=== PATIENT | female | born 1960 | race Caucasian/White ===

== ENCOUNTER → 2019-03-19 08:05 | Outpatient (CLI) | payer BC, SELFPAY ==
[2019-03-19 09:53] LABS: Hematocrit 39.4 % (37-47); Hemoglobin 12.7 g/dL (12.0-15.0); Mean Corp Hgb Conc 32.2 g/dL (32-36); Mean Corpuscular Hgb 31.3 pg (27.0-32.0); Platelet Count 220 K/mm3 (150-450); RBC Distribution Width CV 11.8 % (11.6-14.6); RBC Distribution Width SD 42.4 fl (35.1-43.9); Red Blood Count 4.06 M/mm3 (4.2-5.4)
[2019-03-19 10:02] LABS: Erythrocyte Sedimentation Rate 3 mm/hr (0-30)
[2019-03-19 10:20] LABS: Vitamin D,25 Hydroxy 28.6 ng/mL (29.95-100.01)
[2019-03-19 10:39] LABS: ALB/GLOB Ratio 1.3 RATIO (0.9-2.4); AST(SGOT) 10 U/L (15-37); Alanine Aminotransfer ALT/SGPT 17 U/L (13-56); Albumin, Serum 4.3 g/dL (3.2-5.0); Alkaline Phosphatase 112 U/L (45-117); Anion Gap 7 (5-15); BUN 9 mg/dL (7-18); BUN/Creat Ratio 13.6 RATIO (10-20); CRP < 2.90 mg/L (0.0-3.0); Chloride 104 mmol/L (98-107); Cholesterol 197 mg/dL (200); Creatinine, Serum 0.66 mg/dL (0.55-1.02); EST Glomerular Filtration Rate 97 mL/min (>60); Est Glom Filt Rate - Afr Amer 117 mL/min (>60); Globulin 3.2 g/dL (2.2-4.2); Glucose 82 mg/dL (74-106); High Density Lipoprotein 71 mg/dL; Potassium 3.6 mmol/L (3.5-5.1); Protein, Total 7.5 g/dL (6.4-8.2); Rheumatoid Factor < 10.0 IU/mL (<15); Sodium Level 139 mmol/L (136-145); Thyroid Stim Hormone (TSH) 1.39 uIU/mL (0.358-3.74); Triglycerides 113 mg/dL; Very Low Density Lipoprotein 23 mg/dL (5-40)
[2019-03-22 14:39] LABS: ANTINUCLEAR ANTIBODIES DIRECT Negative (Negative)
[2019-03-22 20:07] LABS: Endomysial Antibody IgA Negative (Negative)
[2019-03-23 09:57] LABS: Deamidated Gliadin IgA 2 units (0-19); Deamidated Gliadin IgG 4 units (0-19); Immunoglobulin A 100 mg/dL (87-352); t-Transglutaminase IgA <2 U/mL (0-3)
== END ==
PROVIDERS: Family Provider Family Medicine; PCP Family Medicine; Referring Provider Family Medicine; Visit Provider Family Medicine
DX: G43.909 Migraine, unspecified, not intractable, without status migrainosus (principal); E78.5 Hyperlipidemia, unspecified; M19.019 Primary osteoarthritis, unspecified shoulder; Z91.018 Allergy to other foods
CPT/HCPCS: 36415; 80053; 80061; 82306; 82784; 83516; 84443; 85027; 85652; 86038; 86140; 86255; 86431

== ENCOUNTER → 2019-04-15 12:15 | Outpatient (CLI) | payer BC, SELFPAY ==
[2016-11-03 23:04] VITALS: BMI 22.3
--- NOTE | 2019-04-15 12:17 | BI_ITS ---
MAMMOGRAPHY - BILATERAL SCREENING REASON FOR EXAM: Female, 58 years old. Routine annual screening examination. PERTINENT HISTORY: Non-contributory. Remote left excisional breast biopsy. TECHNIQUE: Digital bilateral breast natalee (3D mammographic acquisition) in the CC and MLO projections. 2-D mediolateral oblique (MLO) and craniocaudad (CC) views of both breasts were obtained. CAD: Full Field Digital Mammography with Computer Added Detection was performed. COMPARISON: Comparison is made with prior examination dated March 16, 2012. FINDINGS: Breast Composition: The breasts are heterogeneously dense, which may obscure small masses. There are no dominant masses or suspicious calcifications. Scattered bilateral calcifications slightly more prominent on the right side. No focal cluster is seen. No other significant abnormalities are identified. There has been no significant change since the prior study. BI/SCREEN MAMM (CAD) W/NATALEE BILAT IMPRESSION: Stable bilateral screening mammogram. Yearly follow-up mammogram recommended. (A) ASSESSMENT CATEGORY: BIRADS Category 2: Benign. A letter regarding these results will be sent to the patient by the facility within 30 days. Approximately 10% of breast cancers are not detected by mammography. A normal mammogram should not delay biopsy of a clinically suspicious abnormality. [id number] Electronically Signed: Richard Christian, at 14:34 EST , Service support ,
--- NOTE | 2019-04-15 12:20 | BD_ITS ---
STUDY: DUAL ENERGY X-RAY ABSORPTIOMETRY / DXA REASON FOR EXAM: Female, 58 years old. The patient is postmenopausal. Loss of height. TECHNIQUE: Bone Mineral Density (BMD) measurements of lumbar spine and bilateral hips were obtained. COMPARISON: None. FINDINGS: Lumbar Spine (L1-L4): g/cm2 (0.834) / T-score (-2.9) / Z-score (-1.7) Findings are suggestive of osteoporosis with a high fracture risk. Left Femur Total: g/cm2 (0.615) / T-score (-3.1) / Z-score (-2.2) Left Femoral Neck: g/cm2 (0.622) / T-score (-3.0) / Z-score (-1.8) Right Femur Total: g/cm2 (0.565) / T-score (-3.5) / Z-score (-2.6) Right Femoral Neck: g/cm2 (0.591) / T-score (-3.2) / Z-score (-2.0) BD/Dexa Bone Density Study IMPRESSION: The patient is considered osteoporotic as outlined below according to World Phan Organization (WHO) criteria with a high fracture risk. Reference Information: The T-score is the number of standard deviations above or below the standard which is normal for young adults at their peak bone mineral density. The World Health Organization (WHO) interprets the T-scores as follows: Above -1 Normal bone density Between -1 and -2.5 Osteopenia Equal to / or below -2.5 Osteoporosis As a practical clinical guideline, osteopenia may be graded as follows: Mild -1 through -1.5 Moderate -1.6 through -2.0 Severe -2.1 through -2.4 The Z-score is the number of standard deviations above or below age-matched controls. A Z-score of less than -1.5 would be considered abnormal. References: 1. NIH Osteoporosis and Related Bone Diseases http://www.osteo.org 2. International Society for Clinical Densitometry http://www.iscd.org 3. National Osteoporosis Foundation http://www.nof.org Electronically Signed: Richard Christian, at 15:11 EST , Service support ,
== END ==
PROVIDERS: Family Provider Family Medicine; PCP Family Medicine; Referring Provider Family Medicine; Visit Provider Family Medicine
DX: Z12.31 Encounter for screening mammogram for malignant neoplasm of breast (principal); M81.0 Age-related osteoporosis without current pathological fracture
CPT/HCPCS: 77063; 77067; 77080

== ENCOUNTER → 2019-06-25 08:06 | Outpatient (CLI) | payer BC, SELFPAY ==
[2016-11-03 23:04] VITALS: BMI 22.3
[2019-06-25 10:58] LABS: Magnesium 2.4 mg/dL (1.6-2.6)
[2019-06-27 12:07] LABS: CHOLESTEROL TOTAL 183 mg/dL (100-199); HDL-C 62 mg/dL (>39); SMALL LDL-P 256 nmol/L (<=527); TRIGLYCERIDES 89 mg/dL (0-149)
[2019-06-27 15:11] LABS: INSULIN RESISTANCE SCORE <25 (<=45); LDL SIZE 21.7 nm (>20.5); LDL-C 103 mg/dL (0-99); LDL-P 923 nmol/L (<1000)
== END ==
PROVIDERS: PCP Family Medicine; Referring Provider Family Medicine; Visit Provider Family Medicine
DX: M81.0 Age-related osteoporosis without current pathological fracture (principal); Z82.49 Family history of ischemic heart disease and other diseases of the circulatory system
CPT/HCPCS: 36415; 80061; 83704; 83735

== ENCOUNTER → 2019-07-23 13:05 | Outpatient (CLI) | payer BC, SELFPAY ==
[2016-11-03 23:04] VITALS: BMI 22.3
[2019-07-26 18:06] LABS: HPV Reflexed? NOT INDICATED
== END ==
PROVIDERS: PCP Family Medicine; Referring Provider Family Medicine; Visit Provider Family Medicine
DX: Z01.419 Encounter for gynecological examination (general) (routine) without abnormal findings (principal)
CPT/HCPCS: 88175; G0145

== ENCOUNTER → 2019-11-05 09:02 | Outpatient (CLI) | payer BC, SELFPAY ==
--- NOTE | 2019-11-05 09:05 | RAD_ITS ---
STUDY: X-RAY CHEST REASON FOR EXAM: Female, 59 years old. Cough TECHNIQUE: PA and lateral chest COMPARISON: None. FINDINGS: The lungs are clear, symmetrically and normally inflated. Normal cardiomediastinal silhouette, sheyla and pleural margins. No acute osseous or upper abdominal abnormality. RAD/Chest PA and Lateral IMPRESSION: No acute cardiopulmonary process. Electronically Signed: Abhay Avelar MD at 11:12 EDT Tel , Service support ,
[2019-11-09 20:07] LABS: QNTFERON TB Mitogen Value > 10.00 IU/mL (.); QNTFERON TB Nil Value 0.03 IU/mL (.); QNTFERON TB1+ Ag Value 0.04 IU/mL (.); QNTFERON TB2+ Ag Value 0.03 IU/mL (.)
[2019-11-10 05:06] LABS: QNTIFERON TB Positive Criteria Negative (Negative)
== END ==
PROVIDERS: PCP Family Medicine; Referring Provider Family Medicine; Visit Provider Family Medicine
DX: R05 Cough (principal)
CPT/HCPCS: 36415; 71046; 86480

== ENCOUNTER → 2020-10-12 08:21 | Outpatient (CLI) | payer BC, SELFPAY ==
--- NOTE | 2020-10-12 08:25 | BD_ITS ---
STUDY: DUAL ENERGY X-RAY ABSORPTIOMETRY / DXA REASON FOR EXAM: Female, 60 years old. [id number] TECHNIQUE: Bone Mineral Density (BMD) measurements of lumbar spine and bilateral hips were obtained. COMPARISON: 04/23/2019 FINDINGS: Lumbar Spine (L1-L4): g/cm2 (0.884) / T-score (-2.5) / Z-score (-1.2) Findings are suggestive of osteoporosis with a high fracture risk. Left Femur Total: g/cm2 (0.655) / T-score (-2.8) / Z-score (-1.8) Left Femoral Neck: g/cm2 (0.656) / T-score (-2.7) / Z-score (-1.5) Right Femur Total: g/cm2 (0.643) / T-score (-2.9) / Z-score (-1.9) Right Femoral Neck: g/cm2 (0.667) / T-score (-2.7) / Z-score (-1.4) BD/Dexa Bone Density Study IMPRESSION: The patient is considered osteoporotic as outlined below according to World Phan Organization (WHO) criteria with a high fracture risk. There has been improvement of bone density since the previous examination. Reference Information: The T-score is the number of standard deviations above or below the standard which is normal for young adults at their peak bone mineral density. The World Health Organization (WHO) interprets the T-scores as follows: Above -1 Normal bone density Between -1 and -2.5 Osteopenia Equal to / or below -2.5 Osteoporosis As a practical clinical guideline, osteopenia may be graded as follows: Mild -1 through -1.5 Moderate -1.6 through -2.0 Severe -2.1 through -2.4 The Z-score is the number of standard deviations above or below age-matched controls. A Z-score of less than -1.5 would be considered abnormal. References: 1. NIH Osteoporosis and Related Bone Diseases www osteo.org 2. International Society for Clinical Densitometry www iscd.org 3. National Osteoporosis Foundation www nof.org Electronically Signed: Abhay Villalpando MD at 8:47 EDT Tel , Service support ,
== END ==
PROVIDERS: PCP Family Medicine; Referring Provider Family Medicine; Visit Provider Family Medicine
DX: M81.0 Age-related osteoporosis without current pathological fracture (principal)
CPT/HCPCS: 77080

== ENCOUNTER 2021-09-07 10:04 | Outpatient (CLI) | payer BC, SELFPAY | END 2021-09-07 23:59 | disposition home or self-care (01) | LOC: LABSPEC 10:06 | PROVIDERS: PCP Family Medicine; Visit Provider Family Medicine | DX: N39.0 Urinary tract infection, site not specified (principal) | CPT/HCPCS: 87086; 87088; 87186 ==

== ENCOUNTER → 2021-10-19 | Outpatient (CLI) | payer BC, SELFPAY ==
--- NOTE | 2021-10-19 08:08 | BI_ITS ---
MAMMOGRAPHY - BILATERAL SCREENING REASON FOR EXAM: Female, 61 years old. Routine annual screening examination. PERTINENT HISTORY: Non-contributory. Remote left excisional breast biopsy in 1994. TECHNIQUE: Digital bilateral breast natalee (3D mammographic acquisition) in the CC and MLO projections. 2-D mediolateral oblique (MLO) and craniocaudad (CC) views of both breasts were obtained. CAD: Full Field Digital Mammography with Computer Added Detection was performed. COMPARISON: Screening mammogram from 04/15/2019, 03/16/2012 FINDINGS: Breast Composition: The breasts are heterogeneously dense, which may obscure small masses. There are no dominant masses or suspicious calcifications. There are scattered bilateral benign-appearing calcifications. No other significant abnormalities are identified. There has been no significant change since the prior study. BI/SCRN MAMM (CAD)W/NATALEE BILAT IMPRESSION: Stable bilateral screening mammogram. Yearly follow-up mammogram recommended. (A) ASSESSMENT CATEGORY: BIRADS Category 2: Benign. A letter regarding these results will be sent to the patient by the facility within 30 days. Approximately 10% of breast cancers are not detected by mammography. A normal mammogram should not delay biopsy of a clinically suspicious abnormality. [id number] Electronically Signed: Papa Joy, at 15:49 EDT ,
== END | disposition home or self-care (01) ==
LOC: OPBI 08:07
PROVIDERS: PCP Family Medicine; Visit Provider Family Medicine
DX: Z12.31 Encounter for screening mammogram for malignant neoplasm of breast (principal)
CPT/HCPCS: 77063; 77067

== ENCOUNTER → 2022-11-04 | Outpatient (CLI) | payer BC, SELFPAY ==
--- NOTE | 2022-11-04 09:40 | RAD_ITS ---
STUDY: X-RAY CHEST REASON FOR EXAM: Female, 62 years old. Malaise. TECHNIQUE: PA and lateral views of the chest. COMPARISON: November 05, 2019. FINDINGS: The lungs are clear and expanded. There is no demonstrated pleural abnormality. Normal size heart. Normal mediastinum and sheyla. Normal visualized pulmonary arteries. Normal visualized aortic arch and descending thoracic aorta. Normal visualized thoracic spine. Normal visualized ribs, clavicles, and shoulders. There is no demonstrated abnormality of the visualized soft tissue structures of the upper abdomen. RAD/Chest PA and Lateral IMPRESSION: No acute cardiopulmonary disease or major interval change. Electronically Signed: Ash Plata DO at 18:50 EDT ,
[2022-11-04 12:27] LABS: Erythrocyte Sedimentation Rate 5 mm/hr (0-30)
[2022-11-04 12:31] LABS: Absolute Lymphocyte Count 0.24 X10^3/uL (0.83-4.51); Absolute Neutrophil Count 4.1 X10^3/uL (2.0-7.7); Basophil# 0.02 X10^3/uL; Basophil% 0.4 % (0-1); Hematocrit 40.6 % (37-47); Hemoglobin 13.1 g/dL (12.0-15.0); Lymphocyte # 0.24 X10^3/ul (0.83-4.51); Lymphocyte % 5.2 % (19-41); Mean Corp Hgb Conc 32.3 g/dL (32-36); Mean Corpuscular Hgb 30.3 pg (27.0-32.0); Mean Platelet Vol. 9.9 fl (6.2-12.0); Monocyte# 0.16 X10^3/uL; Monocyte% 3.5 % (0-10); NRBC Flagged by Analyzer 0 % (0-5); Neutrophil # 4.14 X10^3/uL (2.7-7.7); Neutrophil % 90.5 % (47-70); POSITIVE DIFFERENTIAL YES; Platelet Count 151 K/mm3 (150-450); RBC Distribution Width SD 41.5 fl (35.1-43.9); Red Blood Count 4.32 M/mm3 (4.2-5.4); White Blood Count 4.6 K/mm3 (4.4-11.0)
[2022-11-04 12:33] LABS: Differential Indicated SCAN CRITERIA MET
[2022-11-04 13:01] LABS: AST(SGOT) 35 U/L (15-37); Alanine Aminotransfer ALT/SGPT 30 U/L (13-56); Albumin, Serum 3.7 g/dL (3.2-5.0); Alkaline Phosphatase 84 U/L (45-117); Anion Gap 8 (5-15); BUN 7 mg/dL (7-18); BUN/Creat Ratio 12.2 RATIO (10-20); Calcium,Total 8.7 mg/dL (8.5-10.1); Chloride 102 mmol/L (98-107); Creatinine, Serum 0.57 mg/dL (0.55-1.02); EST Glomerular Filtration Rate 113 mL/min (>60); Est Glom Filt Rate - Afr Amer 137 mL/min (>60); Globulin 3.7 g/dL (2.2-4.2); Glucose 100 mg/dL (74-106); Lipase 25 U/L (13-75); Potassium 3.4 mmol/L (3.5-5.1); Protein, Total 7.4 g/dL (6.4-8.2); Sodium Level 136 mmol/L (136-145); Thyroid Stim Hormone (TSH) 0.33 uIU/mL (0.358-3.74)
[2022-11-05 12:09] LABS: Lyme Scn Total Ab w/Rflx Negative (Negative)
== END | disposition home or self-care (01) ==
PROVIDERS: PCP Family Medicine; Referring Provider Family Medicine; Visit Provider Family Medicine
DX: R10.13 Epigastric pain (principal); R53.81 Other malaise
CPT/HCPCS: 36415; 71046; 80053; 83690; 84443; 85025; 85652; 86140; 86618

== ENCOUNTER → 2022-11-06 | Outpatient (CLI) | payer BC, SELFPAY ==
--- NOTE | 2022-11-06 14:36 | CT_ITS ---
STUDY: CT ABDOMEN AND PELVIS WITHOUT CONTRAST REASON FOR EXAM: Female, 62 years old. DIVERTICULITIS RADIATION DOSAGE (If Supplied By Facility): CTDIvol = ( 7.13 ) mGy, DLP = ( 309.49 ) mGycm TECHNIQUE: CT images were obtained from the dome of the diaphragm to the symphysis pubis without intravenous contrast. Sagittal and coronal images were reconstructed. Individualized dose optimization techniques were used. COMPARISON: None. FINDINGS: Examination is technically suboptimal due to lack of IV contrast. Diagnostic information is available. LOWER CHEST: The visualized lung bases are unremarkable. The visualized portions of the heart are within normal limits. LIVER: There are hepatic hypodense well-defined lesions in segment 8, possibly cysts or hemangiomata. BILIARY SYSTEM: Normal gallbladder and extrahepatic biliary system. SPLEEN: Normal spleen. PANCREAS: Normal pancreas. ADRENALS:Normal bilateral adrenal glands. KIDNEYS: Normal right kidney. Normal left kidney. GASTROINTESTINAL TRACT: The stomach is incompletely distended and suboptimally evaluated. However, there is possibly circumferential Oestreich wall thickening.. Appendix is not seen. There is mild sigmoid diverticulosis without diverticulitis. VASCULAR: Aorta is normal diameter . Normal retroperitoneum. BLADDER and PELVIS ORGANS: Normal urinary bladder. MUSKULO-SKELETAL SYSTEM: Normal abdominal wall. Normal osseous structures. CT/Abdomen/Pelvis without Cont IMPRESSION: 1. No acute abnormality. 2. Low risk hepatic lesions, recommend outpatient hepatic US. 3. Questionable gastric wall thickening, suboptimally evaluated. Consider outpatient GI evaluation. Electronically Signed: Kit Vazquez MD at 16:41 EDT ,
== END | disposition home or self-care (01) ==
LOC: CT 14:31
PROVIDERS: PCP Family Medicine; Referring Provider Family Medicine; Visit Provider Family Medicine
DX: K57.32 Diverticulitis of large intestine without perforation or abscess without bleeding (principal)
CPT/HCPCS: 74176

== ENCOUNTER 2022-12-25 08:30 | Outpatient (RCR) | payer BC, SELFPAY ==
--- NOTE | 2022-12-04 09:20 | HP.PTEVAL_ITS ---
Patient's Visit Information Visit Information Visit Information: MILO WHALEY is a 62 year old F referred to Physical Therapy by Dr. Rogelio Hayden MD with a diagnosis of B shoulder chronic pain, OA. Date of Evaluation: 12/04/22 Physical Therapist: Rogelio Bergeron, DPT, OCS, CSCS Visit Plan Frequency: 1x/Week Duration: 2-4 Weeks Plan: weekly x 3 per script for progression of ROM, stretch and strength ex B shoulders. Next session phase 3 to HEP then UE strength general. Subjective Subjective: Has had pain in shoulders for twenty years and was put on steroids for shingles and felt great on steroids. Decided to have therapy for them. Shoulders starting to hurt again and may go on celebrex. B shoulders hurt constantly for twenty years. has had injections in shoulders which help for 6 years. x rays in past 10 yrs ago show mild OA. Basic ADLs are OK but hard to take someting off overhead, Hobbies: sewing quilting and they do not make her worse. 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 Employed at [employer] on [employer], needs support under arms to feel better. Pain B shoulders: Pain Intensity (Out of 10): 0 Pain Intensity Range: 0 and 5 Comment: 0 on prednisone Objective Objective: Walks well and i, tranjsfers I bed and chair. Good balance. Posture is very good with just slight tightness apparent in pec minor and FW scapula minimally. AROM of B shoulders is symmetrically slightly limited at end range of elevation adn ex rotation with discomfort . IR is no problem or limitations. Crepitus present R>L in g0h joint with elevation. elbow and wrist and scap and neck AROM WFL and no pain. reflexes 2/3 bi and tri Sensation UE WNL to gross light touch. strength er painful and 3+, IR 4-, flexion, abd, empty can all 3+ and sore in B anterior shoulders. Tender to palpation anterior shoulder g-h joint area. - apprehension - ext rotation lag test - drop arm - sulcus all B Balance/Special Test Scores Quick DASH Score: 9.0900 Goals Goal 1:: I apporopriate management of shoulder pain with strength and ROM and stretching Goal Time Frame: 2-4 Weeks Goal 2:: Pain 50% improved in B shoulders to 1/10 at worst. Goal Time Frame: 2-4 Weeks Rehabilitation Potential Physical Therapy Diagnosis: Shoulder OA leading to chronic pain Rehabilitation Potential: Fair Anticipated Interventions Patient/Client Instruction: Educate patient on: Condition and Plan of Care For the Purpose of:: To decrease pain, To increase ROM and To improve nutrient delivery to tissue Therapeutic Exercise to Include: Strength training, Postural training, Flexibilty training, Passive ROM and Active ROM For the Purpose of:: To decrease pain, To increase ROM, To improve nutrient delivery to tissue, To improve muscle performance and motor function and To increase tolerance to activity/condition/position Text: Thank you for the opportunity to evaluate your patient. For Medicare and Medicare HMO plans, please review the plan of care and approve it. It will need to be FAXED BACK to us at [phone] for Medicare purposes. For Medicare only, by signing this I certify the plan of care. Please let me know if there are questions or concerns regarding this plan of care. Physician Signature: Date:
--- NOTE | 2022-12-25 08:59 | HP.PTDCSUM_ITS ---
Discharge Summary D/C summary: It has been my pleasure to treat MILO WHALEY referred by Dr. Rogelio Hayden MD, with the diagnosis of B shoulder chronic pain, OA for a total of 3 visit(s). Discharge Date: 12/25/22 Please see the following information for a summary of their discharge status. Subjective Subjective: [id number] that I cannot do, it all hurts. Taking celebrex as needed and it helps. Exercises daily and are challenging. Not much improvement in ov erall pain though despite daily ex and activitiy modification. Pain B shoulders: Pain Intensity (Out of 10): 0 Overall Improvement % Improvement: 0 Objective Objective/Function: Full aROM B shoulders, pain end range flexion/abduction and the pain is transient. IR/ER are full and without pain. Resisted testing is painful flexiona dn abduction in anterior R shoulder>L. ER slightly painful resisted and weak R vs L. Overall slightly improved strength and full aROM but pain and soreness persists without improvement. Goals Goal 1:: I apporopriate management of shoulder pain with strength and ROM and stretching Goal Progress: Goal Met Goal 2:: Pain 50% improved in B shoulders to 1/10 at worst. Goal Progress: Not Progressing Plan Plan: Recommend continuing HEP at home dialy and follow up with doctor for next step at end of month during f/u or prior if pain worsens. D/C Information Discharge Comments: Pt to continue HEP and f/u with doctor. she will consider taking celebrex daily since doctor said she could and it is typically helpful but has only been taking it PRN. She will f/u with doctor in a month for next step if not improving with exercises. d/c sentence: If there are questions or concerns regarding this patient's physical therapy, please feel free to call me at [phone]. Thank you for the referral of this patient. Sincerely, Rgoelio Bergeron, DPT, OCS, CSCS Balance/Gait/Functional tests Balance/Special Test Scores Quick DASH Score: 13.6350
== END 2022-12-25 19:00 | disposition home or self-care (01) ==
LOC: PT 08:30
PROVIDERS: PCP Family Medicine; Referring Provider Family Medicine; Visit Provider Family Medicine
DX: M25.511 Pain in right shoulder (principal); M25.512 Pain in left shoulder; M19.90 Unspecified osteoarthritis, unspecified site
CPT/HCPCS: 97110; 97161; 97164

== ENCOUNTER → 2023-01-15 | Outpatient (CLI) | payer BC, SELFPAY ==
[2023-01-15 12:28] LABS: Erythrocyte Sedimentation Rate 2 mm/hr (0-30)
[2023-01-15 13:07] LABS: ALB/GLOB Ratio 1.3 RATIO (0.9-2.4); AST(SGOT) 16 U/L (15-37); Alanine Aminotransfer ALT/SGPT 16 U/L (13-56); Albumin, Serum 3.9 g/dL (3.2-5.0); Alkaline Phosphatase 63 U/L (45-117); Anion Gap 6 (5-15); BUN 7 mg/dL (7-18); BUN/Creat Ratio 12.1 RATIO (10-20); CRP < 2.90 mg/L (0.0-3.0); Calcium,Total 8.9 mg/dL (8.5-10.1); Chloride 107 mmol/L (98-107); Creatinine, Serum 0.58 mg/dL (0.55-1.02); EST Glomerular Filtration Rate 111 mL/min (>60); Est Glom Filt Rate - Afr Amer 135 mL/min (>60); Free T3 2.7 pg/mL (2.18-3.98); Globulin 3.1 g/dL (2.2-4.2); Glucose 83 mg/dL (74-106); Potassium 4.1 mmol/L (3.5-5.1); Sodium Level 140 mmol/L (136-145); T4 Free Direct 0.93 ng/dL (0.76-1.46); Thyroid Stim Hormone (TSH) 1.58 uIU/mL (0.358-3.74)
[2023-01-16 13:08] LABS: ANTINUCLEAR ANTIBODIES DIRECT Negative (Negative)
== END | disposition home or self-care (01) ==
PROVIDERS: PCP Family Medicine; Referring Provider Family Medicine; Visit Provider Family Medicine
DX: E03.8 Other specified hypothyroidism (principal); M25.519 Pain in unspecified shoulder
CPT/HCPCS: 36415; 80053; 84439; 84443; 84481; 85652; 86038; 86140

== ENCOUNTER 2023-03-14 08:54 | Outpatient (CLI) | payer BC, SELFPAY | END 2023-03-14 23:59 | disposition home or self-care (01) | PROVIDERS: PCP Family Medicine; Visit Provider Family Medicine | DX: Z91.018 Allergy to other foods (principal); W57.XXXA Bitten or stung by nonvenomous insect and other nonvenomous arthropods, initial encounter | CPT/HCPCS: 36415 ==

== ENCOUNTER → 2023-03-20 | Outpatient (CLI) | payer BC, SELFPAY ==
--- NOTE | 2023-03-20 08:24 | BD_ITS ---
STUDY: DUAL ENERGY X-RAY ABSORPTIOMETRY / DXA REASON FOR EXAM: Female, 62 years old. 733.00OsteoporosisBONE DENSITY REASON FOR EXAM TECHNIQUE: Bone Mineral Density (BMD) measurements of lumbar spine and bilateral hips were obtained. COMPARISON: Comparison is made with prior study October 12, 2020. FINDINGS: Lumbar Spine (L1-L4): g/cm2 (0.842) / T-score (-1.9) / Z-score (-0.2) Findings are suggestive of osteopenia with a moderate fracture risk. Left Femur Total: g/cm2 (0.671) / T-score (-2.2) / Z-score (-1.1) Left Femoral Neck: g/cm2 (0.591) / T-score (-2.3) / Z-score (-0.9) Right Femur Total: g/cm2 (0.644) / T-score (-2.4) / Z-score (-1.3) Right Femoral Neck: g/cm2 (0.575) / T-score (-2.5) / Z-score (-1.0) The T-Scores on the most recent prior examination were: Lumbar Spine (L1-L4): There has been improvement of bone density since the previous examination. Left Femur Total: which represents an improvement of 12.1% Right Femur Total: which represents an improvement of 9.6%. BD/Dexa Bone Density Study IMPRESSION: The patient is considered osteopenic as outlined below according to World Phan Organization (WHO) criteria with a high fracture risk. There has been improvement of bone density since the previous examination. Reference Information: The T-score is the number of standard deviations above or below the standard which is normal for young adults at their peak bone mineral density. The World Health Organization (WHO) interprets the T-scores as follows: Above -1 Normal bone density Between -1 and -2.5 Osteopenia Equal to / or below -2.5 Osteoporosis As a practical clinical guideline, osteopenia may be graded as follows: Mild -1 through -1.5 Moderate -1.6 through -2.0 Severe -2.1 through -2.4 The Z-score is the number of standard deviations above or below age-matched controls. A Z-score of less than -1.5 would be considered abnormal. References: 1. NIH Osteoporosis and Related Bone Diseases www osteo.org 2. International Society for Clinical Densitometry www iscd.org 3. National Osteoporosis Foundation www nof.org Electronically Signed: Richard Christian MD at 9:12 EDT ,
== END | disposition home or self-care (01) ==
PROVIDERS: PCP Family Medicine; Referring Provider Family Medicine; Visit Provider Family Medicine
DX: N95.9 Unspecified menopausal and perimenopausal disorder (principal)
CPT/HCPCS: 77080

== ENCOUNTER → 2023-06-13 | Outpatient (CLI) | payer BC, SELFPAY ==
--- NOTE | 2023-06-13 08:24 | BI_ITS ---
MAMMOGRAPHY - BILATERAL SCREENING REASON FOR EXAM: Female, 62 years old. Routine annual screening examination. PERTINENT HISTORY: Non-contributory. Remote left excisional breast biopsy. TECHNIQUE: Digital bilateral breast natalee (3D mammographic acquisition) in the CC and MLO projections. 2-D mediolateral oblique (MLO) and craniocaudad (CC) views of both breasts were obtained. CAD: Full Field Digital Mammography with Computer Added Detection was performed. COMPARISON: Comparison is made with prior study dated October 19, 2021 and April 15, 2019. FINDINGS: Breast Composition: The breasts are heterogeneously dense, which may obscure small masses. There are no dominant masses or suspicious calcifications. IMPRESSION: There is once again seen in the deep upper central portion of the right breast. Stable scattered bilateral calcifications. No other significant abnormalities are identified. There has been no significant change since the prior study. BI/SCRN MAMM (CAD)W/NATALEE BILAT IMPRESSION: Stable bilateral screening mammogram. Yearly follow-up mammogram recommended. (A) ASSESSMENT CATEGORY: BIRADS Category 2: Benign. A letter regarding these results will be sent to the patient by the facility within 30 days. Approximately 10% of breast cancers are not detected by mammography. A normal mammogram should not delay biopsy of a clinically suspicious abnormality. [id number] Electronically Signed: Richard Christian MD at 10:48 EST ,
== END | disposition home or self-care (01) ==
LOC: OPBI 08:23
PROVIDERS: PCP Family Medicine; Referring Provider Family Medicine; Visit Provider Family Medicine
DX: Z12.31 Encounter for screening mammogram for malignant neoplasm of breast (principal)
CPT/HCPCS: 77063; 77067

== ENCOUNTER → 2023-06-19 | Outpatient (CLI) | payer BC, SELFPAY ==
[2023-06-19 10:34] LABS: Vitamin D,25 Hydroxy 25.1 ng/mL
[2023-06-19 11:04] LABS: ALB/GLOB Ratio 1.3 RATIO (0.9-2.4); AST(SGOT) 20 U/L (15-37); Alanine Aminotransfer ALT/SGPT 17 U/L (13-56); Albumin, Serum 3.9 g/dL (3.2-5.0); Alkaline Phosphatase 60 U/L (45-117); Anion Gap 5 (5-15); BUN 7 mg/dL (7-18); BUN/Creat Ratio 10.6 RATIO (10-20); Calcium,Total 8.7 mg/dL (8.5-10.1); Chloride 107 mmol/L (98-107); Cholesterol 200 mg/dL (200); Creatinine, Serum 0.66 mg/dL (0.55-1.02); EST Glomerular Filtration Rate 96 mL/min (>60); Est Glom Filt Rate - Afr Amer 116 mL/min (>60); Globulin 3.1 g/dL (2.2-4.2); Glucose 88 mg/dL (74-106); High Density Lipoprotein 59 mg/dL; Potassium 3.6 mmol/L (3.5-5.1); Sodium Level 139 mmol/L (136-145); Thyroid Stim Hormone (TSH) 1.53 uIU/mL (0.358-3.74); Triglycerides 101 mg/dL; Very Low Density Lipoprotein 20 mg/dL (5-40)
== END | disposition home or self-care (01) ==
LOC: MTLAB 08:04
PROVIDERS: PCP Family Medicine; Referring Provider Family Medicine; Visit Provider Family Medicine
DX: M81.0 Age-related osteoporosis without current pathological fracture (principal); E78.5 Hyperlipidemia, unspecified
CPT/HCPCS: 36415; 80053; 80061; 82306; 84443

== ENCOUNTER → 2023-09-01 | Outpatient (CLI) | payer BC, SELFPAY ==
[2023-09-01 15:23] LABS: Absolute Lymphocyte Count 1.72 X10^3/uL (0.83-4.51); Absolute Neutrophil Count 3.1 X10^3/uL (2.0-7.7); Basophil# 0.04 X10^3/uL; Basophil% 0.7 % (0-1); Eosinophil# 0.14 X10^3/uL; Eosinophils% 2.5 % (0-5); Hematocrit 41.7 % (37-47); Hemoglobin 13.3 g/dL (12.0-15.0); Lymphocyte # 1.72 X10^3/ul (0.83-4.51); Lymphocyte % 31.2 % (19-41); Mean Corp Hgb Conc 31.9 g/dL (32-36); Mean Corpuscular Volume 93.9 fL (81-99); Mean Platelet Vol. 10.2 fl (6.2-12.0); Monocyte# 0.47 X10^3/uL; Monocyte% 8.5 % (0-10); NRBC Flagged by Analyzer 0 % (0-5); Neutrophil # 3.12 X10^3/uL (2.7-7.7); Neutrophil % 56.7 % (47-70); Platelet Count 260 K/mm3 (150-450); RBC Distribution Width SD 41.5 fl (35.1-43.9); Red Blood Count 4.44 M/mm3 (4.2-5.4); White Blood Count 5.5 K/mm3 (4.4-11.0)
[2023-09-01 16:25] LABS: Erythrocyte Sedimentation Rate < 1 mm/hr (0-30)
[2023-09-01 16:32] LABS: ALB/GLOB Ratio 1.3 RATIO (0.9-2.4); AST(SGOT) 18 U/L (15-37); Alanine Aminotransfer ALT/SGPT 17 U/L (13-56); Albumin, Serum 4.2 g/dL (3.2-5.0); Alkaline Phosphatase 71 U/L (45-117); Anion Gap 5 (5-15); BUN 8 mg/dL (7-18); BUN/Creat Ratio 11.5 RATIO (10-20); CRP < 2.90 mg/L (0.0-3.0); Calcium,Total 9.2 mg/dL (8.5-10.1); Chloride 105 mmol/L (98-107); EST Glomerular Filtration Rate 90 mL/min (>60); Est Glom Filt Rate - Afr Amer 109 mL/min (>60); Globulin 3.2 g/dL (2.2-4.2); Glucose 93 mg/dL (74-106); Potassium 3.9 mmol/L (3.5-5.1); Protein, Total 7.4 g/dL (6.4-8.2); Sodium Level 139 mmol/L (136-145)
[2023-09-06 00:07] LABS: Pancreatic Elastase, Fecal 308 (>200)
== END | disposition home or self-care (01) ==
LOC: MFPLAB 11:58
PROVIDERS: PCP Family Medicine; Visit Provider Family Medicine
DX: R19.7 Diarrhea, unspecified (principal)
CPT/HCPCS: 36415; 80053; 82653; 85025; 85652; 86140; 87177; 87209; 87329

== ENCOUNTER → 2024-04-01 | Outpatient (CLI) | payer BC, SELFPAY ==
[2024-04-01 15:10] LABS: ALB/GLOB Ratio 1.3 RATIO (0.9-2.4); AST(SGOT) 17 U/L (15-37); Alanine Aminotransfer ALT/SGPT 18 U/L (13-56); Albumin, Serum 4.2 g/dL (3.2-5.0); Alkaline Phosphatase 71 U/L (45-117); Anion Gap 5 (5-15); BUN 5 mg/dL (7-18); BUN/Creat Ratio 8.3 RATIO (10-20); Calcium,Total 9.5 mg/dL (8.5-10.1); Chloride 105 mmol/L (98-107); EST Glomerular Filtration Rate 106 mL/min (>60); Est Glom Filt Rate - Afr Amer 128 mL/min (>60); Globulin 3.2 g/dL (2.2-4.2); Glucose 86 mg/dL (74-106); Lipase 34 U/L (13-75); Potassium 3.4 mmol/L (3.5-5.1); Protein, Total 7.4 g/dL (6.4-8.2); Sodium Level 139 mmol/L (136-145)
[2024-04-01 15:19] LABS: Erythrocyte Sedimentation Rate 2 mm/hr (0-30)
[2024-04-01 15:30] LABS: Absolute Lymphocyte Count 1.48 X10^3/uL (0.83-4.51); Absolute Neutrophil Count 4.2 X10^3/uL (2.0-7.7); Basophil# 0.04 X10^3/uL; Basophil% 0.6 % (0-1); Eosinophil# 0.06 X10^3/uL; Hematocrit 41.6 % (37-47); Hemoglobin 13.2 g/dL (12.0-15.0); Lymphocyte # 1.48 X10^3/ul (0.83-4.51); Lymphocyte % 23.6 % (19-41); Mean Corp Hgb Conc 31.7 g/dL (32-36); Mean Corpuscular Hgb 29.9 pg (27.0-32.0); Mean Corpuscular Volume 94.3 fL (81-99); Mean Platelet Vol. 10.2 fl (6.2-12.0); Monocyte# 0.44 X10^3/uL; NRBC Flagged by Analyzer 0 % (0-5); Neutrophil # 4.23 X10^3/uL (2.7-7.7); Neutrophil % 67.5 % (47-70); Platelet Count 248 K/mm3 (150-450); RBC Distribution Width CV 11.9 % (11.6-14.6); RBC Distribution Width SD 41.1 fl (35.1-43.9); Red Blood Count 4.41 M/mm3 (4.2-5.4); White Blood Count 6.3 K/mm3 (4.4-11.0)
[2024-04-05 15:07] LABS: PROEL- A/G Ratio 1.6 (0.7-1.7); PROEL- Albumin 4.2 g/dL (2.9-4.4); PROEL- Alpha-1 Globulin 0.3 g/dL (0.0-0.4); PROEL- Alpha-2 Globulin 0.7 g/dL (0.4-1.0); PROEL- Beta Globulin 0.9 g/dL (0.7-1.3); PROEL- Gamma Globulin 0.8 g/dL (0.4-1.8); PROEL- Globulin, Total 2.7 g/dL (2.2-3.9); PROEL- TOTAL PROTEIN 6.9 g/dL (6.0-8.5); PROEL-M-Spike Not Observed g/dL (Not Observed)
== END | disposition home or self-care (01) ==
PROVIDERS: PCP Family Medicine; Referring Provider Family Medicine; Visit Provider Family Medicine
DX: R19.7 Diarrhea, unspecified (principal); K30 Functional dyspepsia; R06.02 Shortness of breath
CPT/HCPCS: 36415; 71046; 80053; 83690; 84165; 85025; 85652

== ENCOUNTER → 2024-04-21 | Outpatient (CLI) | payer BC, SELFPAY ==
--- NOTE | 2024-04-21 11:39 | CT_ITS ---
STUDY: CT ABDOMEN AND PELVIS WITH CONTRAST REASON FOR EXAM: Female, 63 years old. abdominal pain RADIATION DOSAGE (If Supplied By Facility): CTDIvol = ( 9.57 ) mGy, DLP = ( 812.33 ) mGycm TECHNIQUE: Oral and amp; IV Readi-CAT and amp; 100mL Isovue-300 was administered. Transaxial images were obtained from the dome of the diaphragm to the symphysis pubis in the portal venous phase. Multiplanar coronal and sagittal images were reformatted. Individualized Dose Optimization Techniques Were Used For This CT. COMPARISON: Prior study dated: 11/06/2022 FINDINGS: LOWER CHEST: Lung bases are clear. No cardiomegaly or pericardial effusion. Coronary artery calcifications are seen. LIVER: The liver is normal in size, shape, and attenuation. Multiple cysts are seen. No suspicious mass. GALLBLADDER AND BILIARY TREE: The gallbladder is normally distended. No gallstones. No gallbladder wall thickening or edema. No pericholecystic fluid. No intra- or extrahepatic biliary ductal dilation. PANCREAS: No focal cystic or solid mass. SPLEEN: Normal size without focal cystic or solid mass. ADRENAL GLANDS: No nodules. KIDNEYS AND URETERS: Normal renal size and position. No hydronephrosis or nephrolithiasis. PERITONEUM: No ascites or free air. No other fluid collection. BOWEL: The stomach is unremarkable. Normal caliber small bowel. There is no obstruction. Malrotation of the small bowel. No colonic wall thickening or inflammation. Moderate colonic stool burden. Appendix not definitively seen. LYMPH NODES: No enlarged mesenteric or retroperitoneal lymph nodes. VESSELS: The aorta is normal in caliber with mild atherosclerotic calcification. URINARY BLADDER: Unremarkable. REPRODUCTIVE ORGANS: Multiple calcifications of the uterus suggestive of fibroids. No adnexal mass. ABDOMINAL WALL: No discrete abdominal or pelvic wall hernia. BONES: No lytic or blastic abnormality. CT/Abdomen/Pelvis WITH Contrast IMPRESSION: No acute finding in the abdomen or pelvis. Moderate colonic stool burden. No acute inflammatory change. Bowel malrotation incidentally noted. Electronically Signed: Serge Sumner MD at 1:56 EST ,
--- NOTE | 2024-04-21 13:37 | STRESSREP ---
Stress Test Report Date: 04/21/2024 Procedure: Exercise tolerance test Indications: Chest pain Consent: Per the patient Procedure: The patient exercised on a Antwan protocol for 6 minutes and 45 seconds achieving a peak heart rate of 160 bpm (102% predicted maximal heart rate) with a peak blood pressure 160/80 mmHg and a peak MET capacity of approximately 9.3 MET's. The baseline ECG demonstrated sinus rhythm with nonspecific ST changes. The peak exercise ECG demonstrated approximately [address] depressions in V5 and V6. Occasional PVCs noted. The functional capacity was considered very good for age. The patient had no complaints of chest discomfort during exercise or recovery. The examination was discontinued secondary to target heart rate being achieved. Impression: 1. Technically adequate (percent predicted maximal heart rate greater than 85%) exercise tolerance test. No chest pain reported. 2. Peak exercise ECG with [address] depressions in V5 and V6 that may denote ischemia. However baseline changes reduce specificity. Recommend further evaluation with either a stress test with imaging modality or coronary CT angio if clinically indicated. 3. Occasional PVCs noted during exercise. This note was generated with [employer] software. It may contain incorrect words, spelling, and punctuation that were not noted in checking the note before signing.
== END | disposition home or self-care (01) ==
PROVIDERS: PCP Family Medicine; Referring Provider Family Medicine; Visit Provider Family Medicine
DX: R07.89 Other chest pain (principal)
CPT/HCPCS: 74177; 93017; Q9967

== ENCOUNTER → 2024-04-27 | Outpatient (CLI) | payer BC, SELFPAY ==
--- NOTE | 2024-04-27 07:42 | RAD_ITS ---
PROCEDURE: Air contrast Upper GI with Small Bowel Follow Through DATE OF EXAMINATION: April 27, 2024. INDICATION: Female, 63 years old. One year history of epigastric pain. FLUOROSCOPY TIME (if supplied): (1:07) minutes/seconds. 34.3 mGy. 55 fluoroscopic images were obtained. TECHNIQUE: Radiographic and fluoroscopic images of the distal esophagus, stomach, and entire small intestine were obtained following the oral ingestion of barium. COMPARISON: None. FINDINGS: The multifocal button grinder film of the abdomen demonstrates a large amount of fecal material in the colon. There are no abnormal calcifications or organomegaly demonstrated. The visualized osseous structures are normal. The esophagus is unremarkable. No evidence of esophageal obstruction. No evidence of gastroesophageal reflux. The stomach and duodenum are unremarkable. A single contrast small bowel follow through exam demonstrates the small bowel to have no evidence for stricture, ulceration or mass. The transit time is normal at 60 minutes. RAD/Upper GI/w Small Bowel IMPRESSION: 1. Unremarkable air contrast upper GI series and small bowel follow-through examination. Large amount of fecal material is seen in the colon. Electronically Signed: Richard Christian MD at 15:27 EST ,
== END | disposition home or self-care (01) ==
PROVIDERS: PCP Family Medicine; Referring Provider Family Medicine; Visit Provider Family Medicine
DX: R10.9 Unspecified abdominal pain (principal); G89.29 Other chronic pain; K30 Functional dyspepsia
CPT/HCPCS: 74246; 74248

== ENCOUNTER → 2024-05-24 | Outpatient (CLI) | payer BC, SELFPAY ==
[2024-05-25 15:07] LABS: Endomysial Antibody IgA Negative (Negative); Immunoglobulin A 103 mg/dL (87-352); t-Transglutaminase IgA <2 U/mL (0-3)
== END | disposition home or self-care (01) ==
LOC: MTLAB 08:52
PROVIDERS: PCP Family Medicine; Referring Provider Internal Medicine Gastroenterology; Visit Provider Internal Medicine Gastroenterology
DX: R10.9 Unspecified abdominal pain (principal)
CPT/HCPCS: 36415; 82784; 83516; 86255

== ENCOUNTER → 2024-06-14 | Outpatient (CLI) | payer BC, SELFPAY ==
--- NOTE | 2024-06-14 08:48 | ECHOD_ITS ---
Reason For Study: Chest Pain Procedure This was a 2D Doppler, Color Flow transthoracic echocardiogram. Exam performed in department. Left Ventricle Normal size and thickness. The left ventricular ejection fraction is 65 %. Normal diastology for age. Right Ventricle Normal right ventricle. Atria The left and right atria are normal. Mitral Valve Trivial mitral valve insufficiency. Tricuspid Valve Mild tricuspid valve insufficiency. Normal pulmonary artery pressure. Aortic Valve Moderate diffuse aortic valve calcification. Moderate aortic valve stenosis. Aortic valve mean peak gradient 30 mmHg. Pulmonic Valve The pulmonic valve is not well visualized. Great Vessels Mildly dilated aortic root. Pericardium/Pleural No pericardial effusion. MMode/2D Measurements & Calculations LVIDd: 3.7 cm IVSd: 0.95 cm LVOT diam: 2.2 cm LVIDs: 2.1 cm LVPWd: 0.87 cm LVOT area: 3.8 cm2 RVDd: 3.2 cm FS: 44.2 % Ao root diam: 4.2 cm asc Aorta Diam: 4.2 cm LAV(MOD-bp): 21.0 ml ACS: 0.94 cm LAV(MOD-bp) Indexed: 12.4 ml/m2 LAV(MOD-sp2): 25.4 ml LAV(MOD-sp4): 16.8 ml SV(MOD-sp4): 41.4 ml SV(sp4-el): 44.5 ml LVAd ap4: 23.0 cm2 LVLd ap4: 7.2 cm SI(MOD-sp4): 24.4 ml/m2 EDV(MOD-sp4): 59.3 ml EDV(sp4-el): 62.9 ml LVAs ap4: 11.4 cm2 LVLs ap4: 6.0 cm ESV(MOD-sp4): 18.0 ml ESV(sp4-el): 18.4 ml EF(MOD-sp4): 69.7 % EF(sp4-el): 70.8 % LA A4 area: 9.3 cm2 LA dimension(2D): 2.6 cm RA A4 area: 11.5 cm2 TAPSE: 2.5 cm Time Measurements MV dec time: 0.22 sec Doppler Measurements & Calculations MV E max roman: 92.4 cm/sec Lat Peak E' Roman: 10.3 cm/sec Med Peak E' Roman: 8.2 cm/sec MV A max roman: 102.0 cm/sec E/E' lat: 9.0 E/E' med: 11.2 MV E/A: 0.91 MV V2 max: 118.9 cm/sec MV P1/2t max roman: 119.9 cm/sec Ao V2 max: 360.4 cm/sec MV max P.7 mmHg MV P1/2t: 79.9 msec Ao max P.0 mmHg MV V2 mean: 68.3 cm/sec Ao V2 mean: 261.0 cm/sec MV mean P.2 mmHg MV dec slope: 439.3 cm/sec2 Ao mean P.4 mmHg MV V2 VTI: 36.6 cm MVA(P1/2t): 2.8 cm2 Ao V2 VTI: 84.7 cm AV (velocity ratio): 0.27 MVA(VTI): 2.4 cm2 TIMOTEO(I,D): 1.0 cm2 TIMOTEO(V,D): 1.0 cm2 LV V1 max: 96.6 cm/sec SV(LVOT): 88.7 ml PA V2 max: 80.0 cm/sec LV V1 max P.7 mmHg LV V1 mean P.0 mmHg LV V1 mean: 65.2 cm/sec LV V1 VTI: 23.1 cm TR max roman: 233.6 cm/sec TR max P.8 mmHg ECHO/Echo Complete Interpretation Summary The left ventricular ejection fraction is 65 %. Moderate diffuse aortic valve calcification. Moderate aortic valve stenosis. Aortic valve mean peak gradient 30 mmHg. Mildly dilated aortic root. Mild tricuspid valve insufficiency. Ordering Physician: Nael Kerr Referring Physician: Nael Kerr Performed By: Syd Lopez RCS
== END | disposition home or self-care (01) ==
PROVIDERS: PCP Family Medicine; Referring Provider Internal Medicine Cardiovascular Disease; Visit Provider Internal Medicine Cardiovascular Disease
DX: R94.39 Abnormal result of other cardiovascular function study (principal); R07.89 Other chest pain; R06.09 Other forms of dyspnea; R01.1 Cardiac murmur, unspecified
CPT/HCPCS: 93306

== ENCOUNTER → 2024-07-07 | Outpatient (CLI) | payer MEDICARE, OTHER, SELFPAY ==
[2024-07-07 09:08] LABS: Cholesterol 216 mg/dL (200); High Density Lipoprotein 71 mg/dL; Triglycerides 93 mg/dL; Very Low Density Lipoprotein 19 mg/dL (5-40)
== END | disposition home or self-care (01) ==
LOC: LAB 07:53
PROVIDERS: PCP Family Medicine; Referring Provider Internal Medicine Cardiovascular Disease; Visit Provider Internal Medicine Cardiovascular Disease
DX: E78.5 Hyperlipidemia, unspecified (principal)
CPT/HCPCS: 36415; 80061

== ENCOUNTER → 2024-07-12 | Outpatient (CLI) | payer MEDICARE, OTHER, SELFPAY ==
--- NOTE | 2024-07-12 12:31 | CT_ITS ---
PROCEDURE: LIMITED CHEST CT CARDIAC ONLY REASON FOR EXAM: Abnormal stress test. TECHNIQUE: Chest CT with intravenous contrast. CONTRAST: 100 cc of Isovue-300. COMPARISON: None. FINDINGS: Hardware: None. Lymph nodes: No mediastinal hilar or axillary lymphadenopathy. Heart and Vasculature: Normal heart size. No pericardial effusion. Aneurysmal dilatation of the root of the ascending thoracic aorta with a transverse dimension of 46.3 mm. Coronary artery calcification. Aortic valve replacement. Lungs and Airways: The lungs are normally expanded and clear. Pleura: No pleural effusion. No pneumothorax. Upper Abdomen: Visualized portions of the upper abdominal viscera are unremarkable. Bones: Bone windows are unremarkable. CT/Limited Chest CT Cardiac Only IMPRESSION: Aneurysmal dilatation of the ascending thoracic aorta with a transverse dimensi on of 46.3 mm. Coronary artery calcification. One or more dose reduction techniques were used (e.g., Automated exposure contr ol, adjustment of the mA and/or kV according to patient size, use of iterative reconstruction technique). Reading Location: [id number]
[2024-07-12 12:47] VITALS: BP 125/66; PULSE 69; RESP 14; O2SAT 100; BMI 24.1
[2024-07-12 13:16] VITALS: BP 125/66; PULSE 66
[2024-07-12 13:16] LABS: CREATININE FINGERSTICK < 1.0 mg/dL (0.55-1.02); EGFR FINGERSTICK > 60.0000 mL/min (>60)
[2024-07-12] MEDS: Nitroglycerin SL (ED/IMG/CATH) 0.4 MG TABLET SL (13:16)
[2024-07-12 13:22] VITALS: BP 101/61; PULSE 74; RESP 16; O2SAT 100
--- NOTE | 2024-07-12 18:20 | CCTA.WCONT ---
CCTA w/Cont Coronary Arteries Date of Study:: 07/12/24 Abnormal stress test Coronary Calcium Scoring: High-resolution Computed Tomographic imaging of the chest was performed on [07/12/2024], with particular attention paid to the coronary arteries. Intravenous contrast agent was administered per protocol and images reconstructed and displayed. LEFT MAIN CORONARY ARTERY: This arose from the left coronary cusp and bifurcating to left anterior descending artery and left circumflex artery. No significant stenosis is noted. Coronary calcium score is 0. [] LEFT ANTERIOR DESCENDING CORONARY ARTERY: This arose from the left main coronary artery and there was a moderate amount of calcification noted in the proximal region with a moderate amount of stenosis noted. The mid and distal part of the left anterior descending artery did not appear to have significant stenosis noted. Coronary calcium score of 462. [] LEFT CIRCUMFLEX CORONARY ARTERY: Nondominant vessel with no significant atherosclerotic plaquing noted. Coronary calcium score of 0 [] RIGHT CORONARY ARTERY: Dominant right coronary artery with significant calcification noted in the proximal region with at least moderate stenosis noted in the mid and distal portions did not appear to have significant stenosis. Coronary calcium score was noted to be 767. [] THORACIC AORTA: [] PULMONARY ARTERY: [] LEFT ATRIUM/APPENDAGE: [] MITRAL VALVE: [] AORTIC VALVE: Trileaflet with calcification [] LEFT VENTRICLE: [] CORONARY CALCIUM SCORE: Total Agatston score was 1229 greater than 90th percentile ranking. CT angiogram demonstrating at least moderate stenosis involving the proximal right coronary artery with calcification and mild to moderate stenosis noted at the left anterior descending artery with calcification present. []
== END | disposition home or self-care (01) ==
LOC: CT 12:29
PROVIDERS: PCP Family Medicine; Referring Provider Internal Medicine Cardiovascular Disease; Visit Provider Internal Medicine Cardiovascular Disease
DX: Z01.812 Encounter for preprocedural laboratory examination (principal); R94.39 Abnormal result of other cardiovascular function study; R07.9 Chest pain, unspecified; R06.09 Other forms of dyspnea; R01.1 Cardiac murmur, unspecified; R06.02 Shortness of breath
CPT/HCPCS: 75571; 75574; 76380; Q9967

== ENCOUNTER → 2024-07-16 | Outpatient (CLI) | payer BC, MEDICARE, OTHER, SELFPAY ==
[2024-07-16 17:41] LABS: Absolute Lymphocyte Count 1.49 X10^3/uL (0.83-4.51); Absolute Neutrophil Count 2.8 X10^3/uL (2.0-7.7); Basophil# 0.04 X10^3/uL; Basophil% 0.8 % (0-1); Eosinophil# 0.09 X10^3/uL; Eosinophils% 1.9 % (0-5); Hematocrit 36.3 % (37-47); Hemoglobin 11.8 g/dL (12.0-15.0); Lymphocyte # 1.49 X10^3/ul (0.83-4.51); Lymphocyte % 30.8 % (19-41); Mean Corp Hgb Conc 32.5 g/dL (32-36); Mean Corpuscular Hgb 30.4 pg (27.0-32.0); Mean Corpuscular Volume 93.6 fL (81-99); Mean Platelet Vol. 10.1 fl (6.2-12.0); Monocyte# 0.44 X10^3/uL; Monocyte% 9.1 % (0-10); NRBC Flagged by Analyzer 0 % (0-5); Neutrophil # 2.77 X10^3/uL (2.7-7.7); Neutrophil % 57.2 % (47-70); Platelet Count 187 K/mm3 (150-450); RBC Distribution Width SD 41.1 fl (35.1-43.9); Red Blood Count 3.88 M/mm3 (4.2-5.4); White Blood Count 4.8 K/mm3 (4.4-11.0)
[2024-07-16 17:55] LABS: Anion Gap 5 (5-15); BUN 10 mg/dL (7-18); BUN/Creat Ratio 12.6 RATIO (10-20); Calcium,Total 8.9 mg/dL (8.5-10.1); Chloride 107 mmol/L (98-107); Creatinine, Serum 0.79 mg/dL (0.55-1.02); EST Glomerular Filtration Rate 77 mL/min (>60); Est Glom Filt Rate - Afr Amer 94 mL/min (>60); Glucose 75 mg/dL (74-106); Potassium 3.7 mmol/L (3.5-5.1); Sodium Level 140 mmol/L (136-145)
== END | disposition home or self-care (01) ==
PROVIDERS: PCP Family Medicine; Referring Provider Physician Assistant Medical; Visit Provider Physician Assistant Medical
DX: R93.89 Abnormal findings on diagnostic imaging of other specified body structures (principal); I20.0 Unstable angina; R94.39 Abnormal result of other cardiovascular function study
CPT/HCPCS: 36415; 80048; 85025

== ENCOUNTER 2024-07-26 06:59 | Day surgery (SDC) | payer BC, MEDICARE, OTHER, SELFPAY ==
[2024-07-23 07:33] VITALS: BMI 24.2
--- NOTE | 2024-07-23 13:57 | PCM.HP.BLA ---
History and Physical Date of Admission: 07/26/24 This lady has a family history of premature coronary artery disease. Recently she was referred for exercise stress test for her complaints of chest pains. Baseline ECG showed nonspecific ST changes. He walked on the treadmill according to the [employer] protocol for little over [address] depressions were noted in V5 and V6. Patient's complaints of chest pains is described as left-sided. According to her, these feels sharp, lasting a second or 2 only. No associated shortness of breath. No radiation. For the past some time, patient does get short of breath with walking uphill. No associated chest pain or tightness. Denies orthopnea. No PND. No ankle edema. Patient did undergo a CT angio which did demonstrate significant coronary artery calcification and at least moderate RCA stenosis. Medical History (Updated 06/02/24 @ 09:[address] aNel Kerr MD) Osteopenia after menopause Sprain of deltoid ligament of left ankle UTI (urinary tract infection) Vitamin D deficiency Xerosis cutis Shoulder arthralgia Rash of back Flank pain Pain, eye, left Nail deformity Tick bite Reflux esophagitis Atrophic vaginitis Family history of heart disease Malaise Shingles Allergy to insect stings Heart murmur Rhinitis Arthritis of shoulder Constipation, chronic Food allergy Menopausal and postmenopausal disorder Migraine Diverticulitis, colon TSH deficiency Hyperlipidemia Osteoporosis Actinic keratosis Ceruminosis Surgical History (Updated 05/11/24 @ 11:14 by Dannie Ortiz RN) History of lumpectomy History of ankle surgery History of tonsillectomy Family History (Updated 05/11/24 @ 11:13 by Dannie Ortiz RN) Brother CAD (coronary artery disease) Sister CAD (coronary artery disease) Social History (Updated 05/11/24 @ 11:01 by Dannie Ortiz RN) household members: spouse Smoking Status: Never smoker alcohol intake: never substance use type: does not use ROS Const Const: Positive for headache(s) (chronic, excedrin relieves); Negative for fatigue, weakness or weight gain ENT ENT: Positive for headache(s) (chronic, excedrin relieves); Negative for dizziness, Nosebleed/epistaxis or balance problems Cardio Chest Pain: Yes (chronic per pt; variable in severity) Onset: at rest Location: left chest Duration: minutes Palpitations: Yes (occasional) Edema: None Muscle aches with walking: None Resp Respiratory: Negative for SOB with activity, SOB at rest or SOB orthopnea\SOB lying down GI GI: Positive for heartburn and other (recent stomach issues; PCP managing); Negative nausea or vomiting Musc Musc: Negative for muscle aches/ myalgia, muscle weakness, joint pain or balance problems Neuro Neuro: Positive for headache(s) (chronic, excedrin relieves); Negative for dizziness, lightheadedness, near syncope, syncope or weakness Endo Endo: Negative for fatigue Cardiology Exam Const Appearance: comfortable and no acute distress Nutritional Appearance: well nourished Neck Neck: no JVD Carotids: Negative bruit Chest Auscultation: Bilateral: Clear to Auscultation Cardio Rate: regular rate Rhythm: regular rhythm Heart sounds: S1 normal and S2 normal 2/6 systolic murmur at base. Neuro General: patient alert, patient awake and patient oriented x3 Extremities Lower Extremity Edema: None: Bilateral Assessment & Plan Assessment/Plan (1) Chest pain: (2) Abnormal cardiovascular stress test: PLAN: Plan Based on patient's symptoms, stress test and abnormal coronary CTA will pursue a diagnostic heart catheterization. Follow-up will be based on findings.
--- NOTE | 2024-07-26 08:40 | CL.D_ITS ---
Patient Name: MILO WHALEY Study Date: 07/26/2024 Performing: Nael Kerr MD Ht: 64 inches 162.56 cm : 1960 Wt: 141.01 lbs 63.96 kg Age: 64 Gender: female BSA: 1.69 PROCEDURE(S) PERFORMED [id number])[facility] CLINICAL PROFILE AND INDICATIONS Indications: Suspected CAD Heart Failure: None Stress/Imaging Standard Exercise Stress Test: Yes Result: Positive Intermediate Risk CAD Presentations: Symptom unlikely to be ischemic. CONCLUSIONS Non-obstructive calcific CAD RECOMMENDATIONS Risk factor modification Medical therapy DESCRIPTION OF PROCEDURE The patient arrived to the procedure lab. The risks and benefits of the procedure as well as a full description of our services here and current unavailability of surgical backup were fully explained to the patient and/or their significant other prior to the catheterization. The Timeout was completed, verifying the correct patient and procedure. The patient's procedural site was prepped and draped in the usual fashion. Local anesthetic was given subcutaneously to right radial region with Lidocaine 2%. Using a modified Seldinger technique, arterial access was obtained via the right radial artery, a 6Fr sheath was inserted. Left Coronary Artery selective angiography was performed in multiple views using a 5 Fr. 4.0 Criders catheter. Right Coronary Artery selective angiography was then performed in multiple views using a 5 Fr. 4.0 Criders catheter.The arterial sheath was pulled and a TR Band was applied for hemostasis 8 ml of air CORONARY ANGIOGRAPHY DOMINANCE: Right Dominant LEFT MAIN: Angiographically normal LEFT ANTERIOR DESCENDING ARTERY: LAD: Calcified 30% Proximal lesion in LAD Calcified 50% Mid lesion in LAD RIGHT CORONARY ARTERY: RCA: Calcified 40% Proximal lesion in RCA COMPLICATIONS No Complications PROCEDURE MEDICATIONS Fentanyl 50 mcg IV Versed 1 mg IV Oxygen: 2 L/min via nasal cannula Benadryl 50 mg IV @ 07/26/2024 08:00:16 Heparin given IA 07/26/2024 08:12:28 Solu-medrol 125 mg IV 07/26/2024 08:00:10 IV Bolus: .9 NaCl 250 ml total 07/26/2024 08:17:40 SUMMARY OF HEMODYNAMIC DATA Time AIR REST ECG 07:27:23 AO 128/74 (96) SA 08:18:41 AO 118/76 (94) 08:20:12 Signed By Nael Kerr MD On 07/26/2024 08:39:41 Nael Kerr MD
== END 2024-07-26 10:15 | disposition home or self-care (01) ==
PROVIDERS: PCP Family Medicine; Referring Provider Internal Medicine Cardiovascular Disease; Visit Provider Internal Medicine Cardiovascular Disease
DX: I25.10 Atherosclerotic heart disease of native coronary artery without angina pectoris (principal); R07.9 Chest pain, unspecified; R94.39 Abnormal result of other cardiovascular function study; K21.00 Gastro-esophageal reflux disease with esophagitis, without bleeding; R00.2 Palpitations; E78.5 Hyperlipidemia, unspecified; Z79.82 Long term (current) use of aspirin; Z79.899 Other long term (current) drug therapy; Z82.49 Family history of ischemic heart disease and other diseases of the circulatory system
CPT/HCPCS: 93454; 99152; Q9967; C1769; C1894

== ENCOUNTER → 2024-09-03 | Outpatient (CLI) | payer MEDICARE, OTHER, SELFPAY | END | disposition home or self-care (01) | LOC: LABSPEC 16:59 | PROVIDERS: PCP Family Medicine; Referring Provider Family Medicine; Visit Provider Family Medicine | DX: N39.0 Urinary tract infection, site not specified (principal) | CPT/HCPCS: 87086; 87186 ==

== ENCOUNTER → 2024-09-06 | Outpatient (CLI) | payer MEDICARE, OTHER, SELFPAY ==
--- NOTE | 2024-09-06 15:32 | BI_ITS ---
EXAM: SCRN MAMM (CAD)W/NATALEE BILAT DATE: 09/06/2024 CLINICAL HISTORY: F, Age 64 y/o , SCREENING No family history. Prior left excisional breast biopsy. BREAST CANCER RISK ASSESSMENT: Not assessed. TECHNIQUE: Bilateral screening digital breast tomosynthesis with 2D and 3D images. Computer aided detection. COMPARISON: Prior exam(s) dated June 13, 2023.. FINDINGS: TISSUE DENSITY: The breast tissue is heterogenously dense, which may obscure small masses. Bilateral Breast Mammographic Findings: No significant masses, calcifications or other abnormalities are identified. No suspicious masses, areas of developing architectural distortion, or suspicious calcifications. There has been no significant interval change. BI/SCRN MAMM (CAD)W/NATALEE BILAT IMPRESSION: Right Breast: BIRADS 2 BENIGN FINDING. Left Breast: BIRADS 2 BENIGN FINDING. OVERALL FINAL ASSESSMENT: BIRADS 2 BENIGN FINDING RECOMMENDATION: Routine annual follow-up in 1 Year A letter with findings and recommendations will be mailed to the patient. Reading Location: [place] [id number]
== END | disposition home or self-care (01) ==
PROVIDERS: PCP Family Medicine; Referring Provider Family Medicine; Visit Provider Family Medicine
DX: Z12.31 Encounter for screening mammogram for malignant neoplasm of breast (principal)
CPT/HCPCS: 77063; 77067

== ENCOUNTER → 2025-03-21 | Outpatient (CLI) | payer MEDICARE, OTHER, SELFPAY ==
[2025-03-21 08:55] LABS: AST(SGOT) 24 U/L (<=31); Alanine Aminotransfer ALT/SGPT 21 U/L (<=34); Albumin, Serum 4.3 g/dL (3.4-4.8); Alkaline Phosphatase 87 U/L (35-104); Bilirubin, Direct 0.18 mg/dL (0.00-0.30); Cholesterol 140 mg/dL (<=200); Globulin 2.5 g/dL (2.2-4.2); Low Density Lipoprotein Calc. 67 mg/dL; Triglycerides 63 mg/dL; Very Low Density Lipoprotein 13 mg/dL (5-40); cholesterol:hdl ratio screen 2.35
== END | disposition home or self-care (01) ==
PROVIDERS: PCP Family Medicine; Referring Provider Nurse Practitioner Gerontology; Visit Provider Nurse Practitioner Gerontology
DX: N39.0 Urinary tract infection, site not specified (principal); E78.5 Hyperlipidemia, unspecified
CPT/HCPCS: 36415; 80061; 80076

== ENCOUNTER → 2025-03-22 | Outpatient (CLI) | payer MEDICARE, OTHER, SELFPAY ==
--- NOTE | 2025-03-22 07:26 | BD_ITS ---
PROCEDURE: BD/Dexa Bone Density Study
== END | disposition home or self-care (01) ==
PROVIDERS: PCP Family Medicine; Referring Provider Family Medicine; Visit Provider Family Medicine
DX: M81.0 Age-related osteoporosis without current pathological fracture (principal); Z78.0 Asymptomatic menopausal state
CPT/HCPCS: 77080